=== PATIENT | male | born 2000 | race Caucasian/White ===

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

== ENCOUNTER 2020-05-22 14:02 | Emergency (ER) | payer OTHER ==
[~2020-05-22] VITALS: Ht 180.3 cm; Wt 68.5 kg
[2020-05-22] MEDS ORDERED: HYDROcodone/APAP 5/325 TABLET ONE (14:53)
--- NOTE | 2020-05-22 14:57 | NUR ---
PT WAS CRYING AFTER ERP PRESSED ON ABDOMEN. STATES PAIN IS CENTERED AROUND NAVEL AREA. ERP NOTIFIED. PT MEDICATED WITH NORCO. US BEING DONE AT BS NOW.
[2020-05-22] MEDS ORDERED: HYDROcodone/APAP 5/325 TABLET PO ONE (15:00)
--- NOTE | 2020-05-22 15:51 | NUR ---
PT STATES PAIN IMPROVED AFTER NORCO. AMBULATED TO BR WITHOUT DIFFICULTY. CHART UP FOR RECHECK.
--- NOTE | 2020-05-22 16:06 | NUR ---
ERP AT FOR RECHECK.
[2020-05-22 16:30] VITALS: BP 121/75
--- NOTE | 2020-05-22 16:30 | NUR ---
D/C INSTRUCTIONS, MEDS & F/U APPT RV'WD WITH PT, HE VERBALIZES UNDERSTANDING. RX GIVEN X1. PT AMBULATED OUT OF ED WITH MOTHER WITHOUT DIFFICULY.
== END 2020-05-22 16:31 | disposition home or self-care (01) ==
LOC: ED 14:39
DX: R10.33 Periumbilical pain (principal); F17.210 Nicotine dependence, cigarettes, uncomplicated
CPT/HCPCS: 76705; 99284; 99406